=== PATIENT | male | born 1955 | race Caucasian/White ===

== ENCOUNTER 2021-11-06 15:09 | Emergency (ER) | payer OTHER, MEDICAID ==
[~2021-11-06] VITALS: Ht 167.6 cm; Wt 63.5 kg
[2021-11-06 15:35] VITALS: BP_SYST 118
--- NOTE | 2021-11-06 15:35 | NUR ---
Patient triaged and placed in waiting room. VSS and patient appears in no acute distress at this time. Accompanied by self, awaiting available bed, and MD notified of need for MSE.
--- NOTE | 2021-11-06 15:37 | NUR ---
Dr. Hunter in triage room examining patient.
--- NOTE | 2021-11-06 15:42 | NUR ---
Patient accompanied by Sherrie to CT scan of left shoulder.
--- NOTE | 2021-11-06 15:48 | NUR ---
patient returned to waiting room in stable condition
--- NOTE | 2021-11-06 16:00 | NUR ---
Patient to [facility] for evaluation.
--- NOTE | 2021-11-06 16:30 | NUR ---
patient brought in by self complaining of left shoulder pain x 1 month, non traumatic. Patient states "I am unable to reach up without screaming." Patient reports being seen at [facility] last week for xrays and was referred to PMD for MRI of left shoulder. Patient reports he does not have a PMD and [facility]. Pain 5/10 at rest. No deformity noted.
[2021-11-06 16:48] VITALS: BP_SYST 118
--- NOTE | 2021-11-06 16:48 | NUR ---
Patient given written and verbal discharge instructions and verbalizes understanding. ER MD discussed with patient the results and treatment provided. Patient in stable condition. ID arm band removed. Patient educated on pain management and to follow up with PMD. Pain Scale 0/10 Opportunity for questions provided and answered.
== END 2021-11-06 16:48 | disposition home or self-care (01) ==
LOC: SED 15:09
DX: M19.012 Primary osteoarthritis, left shoulder (principal)
CPT/HCPCS: 73200-TC; 76376; 99284